=== PATIENT | female | born 1965 | race Caucasian/White ===

== ENCOUNTER 2022-01-19 09:50 | Inpatient (IN) | payer SELFPAY ==
[2022-01-19 10:07] LABS: #Eosinphils 0.1 thou/uL (0.0-0.7); #Lymphocytes 2.2 thou/uL (1.20-3.40); #Monocytes 0.5 thou/uL (0.11-0.59); %Basophils 0.4 % (0.0-1.0); %Eosinophils 1.2 % (0.0-10.0); %Lymphocytes 22.2 % (21.0-51.0); %Monocytes 4.9 % (0.0-10.0); %Neutrophils 71.2 % (42.0-75.0); Hemoglobin 13.4 g/dL (12.0-16.0); Mean Corpuscular HGB CONC 34.6 g/dL (32.0-36.0); Mean Corpuscular Hemoglobin 31.2 pg (27.0-31.0); Mean Corpuscular Volume 90.3 fL (78.0-98.0); Mean Platelet Volume 7.6 fL (7.4-10.4); Platelet Count 362 thou/uL (130-400); RBC Distribution Width 11.3 % (11.5-14.5); White Blood Cell (WBC) Count 9.8 thou/uL (4.8-10.8)
[2022-01-19 10:25] LABS: ALT (SGPT) 15 U/L (8-55); AST (SGOT) 17 U/L (5-34); Albumin 4.5 g/dL (3.5-5.0); Alkaline Phosphatase 64 U/L (40-110); Anion Gap 14 mmol/L (10-20); BUN (Urea Nitrogen) 27 mg/dL (9.8-20.1); Bilirubin, Total 0.5 mg/dL (0.2-1.2); CK (CPK) 44 U/L (29-168); Calc. Creatinine Clearance 0 mL/min (70-130); Calcium 9.9 mg/dL (7.8-10.44); Carbon Dioxide 26 mmol/L (22-29); Chloride 101 mmol/L (98-107); Estimated GFR 47; Globulin 3.8 g/dL (2.4-3.5); Glucose 114 mg/dL (70-105); Lipase 30 U/L (8-78); Potassium 4.4 mmol/L (3.5-5.1); Protein, Total 8.3 g/dL (6.0-8.3); Sodium 137 mmol/L (136-145)
[2022-01-19] MEDS ORDERED: Aspirin Chewable 81 MG TAB ONE (10:49)
[2022-01-19] MEDS ORDERED: Senokot S 8.6-50 MG TAB PO PRN (11:51)
[2022-01-19] MEDS ORDERED: Ondansetron ODT 4 MG TAB PO PRN (11:51)
[2022-01-19] MEDS ORDERED: Ondansetron PF 4 MG/2 ML Vial IVP PRN (11:51)
[2022-01-19] MEDS ORDERED: Acetaminophen 325 MG TAB PO PRN (11:51)
[2022-01-19 12:09] LABS: Bilirubin Negative (Negative); Blood, Urine Negative (Negative); Clarity Clear (Clear); Glucose, Urine (Dipstick) Normal (Negative); Ketone, Urine Negative (Negative); Leukocyte Negative Leu/uL (Negative); Nitrite Negative (Negative); Protein, Urine (Dipstick) Negative (Neg-Trace); Specific Gravity, Urine 1.007 (1.002-1.036); Urobilinogen Normal mg/dL (Less than 2)
[2022-01-19 12:25] LABS: Hemoglobin A1c 5.6 % (4.0-6.0)
[2022-01-19 13:20] LABS: Troponin I 0.012 ng/mL (< 0.028)
[2022-01-19 16:12] LABS: Troponin I Less than 0.010 ng/mL (< 0.028)
[2022-01-19 16:29] VITALS: BMI 32.5
[2022-01-19] MEDS: Sodium Chloride 0.9% 1,000 ML IV SCH (17:13)
[2022-01-19] MEDS: Atorvastatin Calcium 40 MG TAB PO SCH (20:49)
[2022-01-20] MEDS: Sodium Chloride 0.9% 1,000 ML IV SCH (07:40)
[2022-01-20] MEDS: Aspirin 81 mg Enteric Coated Tablet PO SCH (08:10)
[2022-01-20 09:16] LABS: #Eosinphils 0.2 thou/uL (0.0-0.7); #Lymphocytes 2.2 thou/uL (1.20-3.40); #Monocytes 0.6 thou/uL (0.11-0.59); #Neutrophils 5.4 thou/uL (1.40-6.50); %Basophils 0.2 % (0.0-1.0); %Eosinophils 2.6 % (0.0-10.0); %Lymphocytes 26.6 % (21.0-51.0); %Monocytes 7.2 % (0.0-10.0); %Neutrophils 63.4 % (42.0-75.0); Hemoglobin 11.6 g/dL (12.0-16.0); Mean Corpuscular HGB CONC 32.7 g/dL (32.0-36.0); Mean Corpuscular Hemoglobin 30.1 pg (27.0-31.0); Mean Platelet Volume 7.5 fL (7.4-10.4); Platelet Count 318 thou/uL (130-400); RBC Distribution Width 11.5 % (11.5-14.5); Red Blood Cell (RBC) Count 3.86 mill/uL (4.20-5.40); White Blood Cell (WBC) Count 8.4 thou/uL (4.8-10.8)
[2022-01-20 09:38] LABS: Anion Gap 13 mmol/L (10-20); BUN (Urea Nitrogen) 17 mg/dL (9.8-20.1); Calc. Creatinine Clearance 95 mL/min (70-130); Calcium 9.1 mg/dL (7.8-10.44); Carbon Dioxide 23 mmol/L (22-29); Cardiac Risk 6.9 (Less than 4.5); Chloride 105 mmol/L (98-107); Cholesterol 268 mg/dl (< 200 Desired); Estimated GFR 76; Glucose 107 mg/dL (70-105); HDL Cholesterol 39 mg/dL (>60 Neg Risk); LDL Cholesterol, Calculated 187 mg/dL; Potassium 4.2 mmol/L (3.5-5.1); Sodium 137 mmol/L (136-145); Triglycerides 208 mg/dL (Less than 150)
[2022-01-20] MEDS ORDERED: Enoxaparin Sodium 40 MG/0.4 ML SYRINGE SC SCH (13:45)
[2022-01-20] MEDS ORDERED: Iopamidol 370 76% 100 ML VIAL ONE (16:08)
[2022-01-20] MEDS ORDERED: Clopidogrel Bisulfate 75 MG TAB PO SCH (18:15)
[2022-01-20] MEDS: Atorvastatin Calcium 40 MG TAB PO SCH (21:20)
[2022-01-21 06:01] LABS: #Eosinphils 0.3 thou/uL (0.0-0.7); #Lymphocytes 2.9 thou/uL (1.20-3.40); #Monocytes 0.6 thou/uL (0.11-0.59); #Neutrophils 5.1 thou/uL (1.40-6.50); %Basophils 0.5 % (0.0-1.0); %Eosinophils 3.7 % (0.0-10.0); %Monocytes 6.9 % (0.0-10.0); Hemoglobin 11.8 g/dL (12.0-16.0); Mean Corpuscular HGB CONC 33.6 g/dL (32.0-36.0); Mean Corpuscular Hemoglobin 30.7 pg (27.0-31.0); Mean Corpuscular Volume 91.4 fL (78.0-98.0); Mean Platelet Volume 7.8 fL (7.4-10.4); Platelet Count 312 thou/uL (130-400); RBC Distribution Width 11.4 % (11.5-14.5); Red Blood Cell (RBC) Count 3.86 mill/uL (4.20-5.40)
[2022-01-21 06:20] LABS: Anion Gap 15 mmol/L (10-20); BUN (Urea Nitrogen) 17 mg/dL (9.8-20.1); Calc. Creatinine Clearance 90 mL/min (70-130); Calcium 9.4 mg/dL (7.8-10.44); Carbon Dioxide 22 mmol/L (22-29); Chloride 104 mmol/L (98-107); Estimated GFR 71; Glucose 110 mg/dL (70-105); Sodium 137 mmol/L (136-145)
[2022-01-21] MEDS: Aspirin 81 mg Enteric Coated Tablet PO SCH (09:01)
[2022-01-21] MEDS: Clopidogrel Bisulfate 75 MG TAB PO SCH (09:01)
[2022-01-21] MEDS: Enoxaparin Sodium 40 MG/0.4 ML SYRINGE SC SCH (09:01)
[2022-01-21] MEDS ORDERED: hydrALAZINE 20 MG/ML VIAL SLOW IVP PRN (15:36)
[2022-01-21] MEDS: Atorvastatin Calcium 40 MG TAB PO SCH (20:46)
[2022-01-21] MEDS: Lisinopril/Hydrochlorothiazide 20/25 mg Tablet PO SCH (20:46)
[2022-01-22] MEDS ORDERED: Heparin 5,000 UNITS/ML VIAL ONE (06:34)
[2022-01-22] MEDS ORDERED: Bupivacaine/Epinephrine 0.25% 30 ML VIAL ONE ×2 (06:34)
[2022-01-22] MEDS ORDERED: Protamine Sulfate 50 MG/5 ML VIAL ONE (06:34)
[2022-01-22] MEDS ORDERED: Dexamethasone 4 mg/ml Vial ONE (06:34)
[2022-01-22] MEDS ORDERED: Lidocaine 1% MPF 2 ML VIAL ONE ×2 (06:35→07:14)
[2022-01-22] MEDS ORDERED: Fentanyl 100 MCG/2 ML VIAL ONE (07:14)
[2022-01-22] MEDS ORDERED: Phenylephrine 10 MG/ML VIAL ONE (07:31)
[2022-01-22] MEDS ORDERED: Rocuronium Bromide 10 MG/ML (10ML VIAL) ONE (07:31)
[2022-01-22] MEDS ORDERED: Metoprolol Tartrate 5 MG/5 ML VIAL ONE (07:31)
[2022-01-22] MEDS ORDERED: Ondansetron PF 4 MG/2 ML Vial ONE (07:31)
[2022-01-22] MEDS ORDERED: Glycopyrrolate 0.2 MG/ML 5 ML SYRINGE ONE (07:31)
[2022-01-22] MEDS ORDERED: PROPOFOL 200 MG/20 ML VIAL ONE (07:31)
[2022-01-22] MEDS ORDERED: CEFAZOLIN 2 GM VIAL ONE (07:32)
[2022-01-22] MEDS ORDERED: Sodium Chloride 0.9% 100 ML ONE (07:32)
[2022-01-22] MEDS ORDERED: Acetaminophen 325 MG TAB PO PRN (09:01)
[2022-01-22] MEDS ORDERED: Nitroglycerin 50 MG/250 ML BOT 250 ML IVPB PRN (09:01)
[2022-01-22] MEDS ORDERED: Fentanyl 100 MCG/2 ML VIAL SLOW IVP PRN (09:01)
[2022-01-22] MEDS ORDERED: traMADol HCl 50 MG TAB PO PRN ×2 (09:01)
[2022-01-22] MEDS ORDERED: Ondansetron PF 4 MG/2 ML Vial IVP PRN (09:01)
[2022-01-22] MEDS: Sodium Chloride 0.9% 1,000 ML IV SCH ×2 (10:07→18:05)
[2022-01-22] MEDS: Enoxaparin Sodium 40 MG/0.4 ML SYRINGE SC SCH (12:29)
[2022-01-22] MEDS: Aspirin 81 mg Enteric Coated Tablet PO SCH (12:30)
[2022-01-22] MEDS: Metoprolol Tartrate 50 MG TAB PO SCH (12:30)
[2022-01-22] MEDS: Clopidogrel Bisulfate 75 MG TAB PO SCH (12:30)
[2022-01-22] MEDS: Lisinopril/Hydrochlorothiazide 20/25 mg Tablet PO SCH ×2 (12:40→20:27)
[2022-01-22] MEDS: CEFAZOLIN 2 GM in Sodium Chloride 0.9% 100 ML IVPB SCH ×2 (15:17→23:47)
[2022-01-22] MEDS: Atorvastatin Calcium 40 MG TAB PO SCH (20:20)
[2022-01-23] MEDS: CEFAZOLIN 2 GM in Sodium Chloride 0.9% 100 ML IVPB SCH (07:19)
[2022-01-23 08:38] VITALS: TEMP 97.4
[2022-01-23] MEDS: Aspirin 81 mg Enteric Coated Tablet PO SCH (09:10)
[2022-01-23] MEDS: Enoxaparin Sodium 40 MG/0.4 ML SYRINGE SC SCH (09:10)
[2022-01-23] MEDS: Sodium Chloride 0.9% 1,000 ML IV SCH (09:10)
[2022-01-23] MEDS: Metoprolol Tartrate 50 MG TAB PO SCH (09:10)
[2022-01-23] MEDS: Clopidogrel Bisulfate 75 MG TAB PO SCH (09:10)
[2022-01-23] MEDS: Lisinopril/Hydrochlorothiazide 20/25 mg Tablet PO SCH (09:30)
[2022-01-23 09:31] VITALS: BP 138/68
== END 2022-01-23 10:20 | disposition home or self-care (01) | DRG 38 ==
LOC: ERS 09:50 → ERHOLD 11:17 → NEURO 16:01 → CCU 01-22 09:01
PROVIDERS: ADMIT Family Medicine; ATTEND Family Medicine
PROC: 03CJ0ZZ Extirpation of Matter from Left Common Carotid Artery, Open Approach (ICD-10-PCS; principal; 2022-01-22)
PROC: 03UJ0KZ Supplement Left Common Carotid Artery with Nonautologous Tissue Substitute, Open Approach (ICD-10-PCS; 2022-01-22)
DX: I63.233 Cerebral infarction due to unspecified occlusion or stenosis of bilateral carotid arteries (principal); N17.9 Acute kidney failure, unspecified; G81.91 Hemiplegia, unspecified affecting right dominant side; Z20.822 Contact with and (suspected) exposure to COVID-19; I10 Essential (primary) hypertension; R29.700 NIHSS score 0; Z28.311 Partially vaccinated for COVID-19; Z79.899 Other long term (current) drug therapy
CPT/HCPCS: 36415; 70450; 70498; 70553; 80048; 80053; 80061; 81003; 82550; 83036; 83690; 83735; 84443; 84484; 85025; 93005; 93306; 93880; 94640; 95706; 95819; 95957; 96360; C1713; C1768; J0360; J0690; J1100; J1642; J1644; J1650; J2370; J2405; J2704; J2710; J2720; J3010; J3490; J7050; J7620; Q9967; U0003; U0005